=== PATIENT | female | born 1990 | race Caucasian/White ===

== ENCOUNTER 2018-09-01 23:24 | Emergency (ER) | payer MEDICAID ==
[~2018-09-01] VITALS: Ht 152.4 cm; Wt 68.6 kg
[2018-09-01 23:34] VITALS: BP 130/79; TEMP 98
[2018-09-02 02:40] VITALS: PULSE 86
== END 2018-09-02 02:40 | disposition home or self-care (01) ==
LOC: COL.ER 23:24
DX: O26.86 Pruritic urticarial papules and plaques of pregnancy (PUPPP) (principal); Z3A.11 11 weeks gestation of pregnancy